=== PATIENT | female | born 1985 | race Caucasian/White ===

== ENCOUNTER → 2017-04-30 10:15 | Emergency (ER) | payer OTHER ==
[~2017-04-30 10:15] MED LIST: Famotidine IV* 10 MG/ML 2 ML (20 mg) IV SLOW PU ONE; LORazepam INJ* 2 MG/ML 1 ML VIAL IV PUSH PRN; diPHENhydraMINE IV* 50 MG/ML 1 ml VIAL (BENADRYL) IV ONE
[2017-04-30 11:51] LABS: Hematocrit 40 % (35-47); Hemoglobin 13.3 g/dl (12.0-16.0); Mean Corpuscular HGB Conc 33 g/dl (31-36); Mean Corpuscular Hemoglobin 29 pg (27-31); Mean Corpuscular Volume 86 fL (80-97); Mean Platelet Volume 7 um3 (7.4-10.4); Red Blood Count 4.66 10^6/ul (4.0-5.4); Red Cell Distribution Width 15 % (10.5-15)
[2017-04-30 11:59] LABS: Urine Bacteria Absent (Absent); Urine Bilirubin Negative (Negative); Urine Glucose Negative (Negative); Urine Nitrite Positive (Negative)
[2017-04-30 12:05] LABS: Albumin 4.2 g/dL (3.2-5.2); BUN/Creatinine Ratio 23.1 (8-20); C Reactive Protein 4.37 mg/L (< 5.00); Calcium 9.7 mg/dL (8.6-10.3); EGFR African American 110.1 (>60); EGFR Non-African American 85.6 (>60); Globulin 3.4 g/dL (2-4); Potassium 3.5 mmol/L (3.5-5.0); Total Bilirubin 0.4 mg/dL (0.2-1.0); Total Protein 7.6 g/dL (6.4-8.9)
[2017-04-30 15:36] VITALS: BP 126/89
--- NOTE | 2017-04-30 15:56 | CONSULT ---
Consult Consult: CC: vaginal itching HPI: Pt says her itching first started on Sat pretty soon after having intercourse. She also had some chunky white discharge so she used OTC yeast treatment x2. She says the itching and irritation continued to get worse. She saw her PCP on thursday, had affirm done which did end up coming back + for yeast and was given diflucan 150mg. She still felt no improvement and tried vagisil and nystatin cream which made her skin burn. She was seen at [facility] on yesterday (thu) and was started on a medrol dose pack for suspected contact dermatitis and also had lidocaine gel applied. She says the lidocaine initially burned a lot but then maybe helped some for a little while. She also says hot water joseph. She has been trying to keep it dry and sits in front of a fan sometimes to dry it out and has used some ice. She also tried desitin once. Yesterday she was also prescribed a second course of diflucan and took 200mg yesterday and 100mg today and has 3 more doses. She says this morning she put monistat cream on it because that hasn't seemed to be bothering her as much but after a little bit she started to feel like her skin was burning and had an irresistible urge to itch the area so she hopped in the shower to wash it off and the water burned even more and made her feel so bad that she came to the ED. She is also very anxious about it and says she has been unable to sleep , the itching is worse at night. She takes Ibuprofen nightly and zoloft and last night she took cyclobenzaprine twice but still had difficulty sleeping. Meds: zoloft, plus the more recent ones mentioned in the HPI Allergies: NKDA PMH: anxiety PSH: wisdom teeth, CS, D&C Soc Hx: denies alcohol, tobacco or illicit drug use. AVSS PE Gen: NAD pelvic: erythema over labia majora and clitoral area extending around the introitus and perineum - tender to touch. Nontender intravaginally - speculum exam deferred since she was just seen in our office yesterday. Assessment: Yeast infection with development of contact dermatitis either from itching or from some of the creams used to treat the itching. ?persistent yeast infection. Significant anxiety component. Plan: Recheck affirm to see if yeast has resolved. Continue steroid taper and fluconazole for now. Stop other yeast creams. Keep area very dry, use squirt bottle instead of toilet paper. Apply desitin to dry skin as barrier ointment. Apply ice whenever possible. Take xanax as prescribed. Talk with PCP about other options to help with sleep.
--- NOTE | 2017-05-01 19:28 | ED ---
Joaquín Laguna Alfonso, scribed for Seng Marc MD on 04/30/17 at 1102 . GI/ HPI - HPI Summary HPI Summary: This patient is a 32 year old F presenting to [facility] accompanied by mother and sister with a chief complaint of vaginal symptoms since this morning. Patient reports It feels like paper cuts and might be an allergic reaction to medications she was recently prescribed to treat a yeast infection. The CC is described as pruritic rash radiating from vagina to her buttock. Pt rates the pain 6/10 in severity. Symptoms aggravated by walking and alleviated by ice. She reports insomnia. Patient has been taking Benadryl every 4-6 hours since 5 days ago. She was taking Miconazole and Vagisil 5, 4 and 3 days ago. She was took Fluconazole, nystatin cream, Ativan, and Xanax 2 days ago. She used Fluconazole, Lidocaine gel, and Prednisone 24 mg yesterday. Today she used Fluconazole, Prednisone 4mg, Pyridium, and Xanax. PMHx of depression. - History of Current Complaint Chief Complaint: EDAllergicReaction Time Seen by Provider: 04/30/17 10:35 Stated Complaint: POSSIBLE ALLERGIC REACTION Hx Obtained From: Patient, Family/Manufacturing Project Manager - Mother Onset/Duration: Started Hours Ago - This morning, Still Present Timing: Constant Severity: Moderate Current Severity: Moderate Pain Intensity: 6 - /10 Additional Location for Females: Vulva - pruritic rash radiating from vagina to her buttock Pain Characteristics: Itching Associated Signs and Symptoms: Positive: Other: - Insomnia Aggravating Factor(s): Walking/Exertion Alleviating Factor(s): Ice - Allergy/Home Medications Allergies/Adverse Reactions: Allergies Allergy/AdvReac Type Severity Reaction Status Date / Time No Known Allergies Allergy Verified 06/20/16 08:53 PMH/Surg Hx/FS Hx/Imm Hx Endocrine/Hematology History: Denies: Hx Diabetes Cardiovascular History: Denies: Hx Congestive Heart Failure, Hx Hypertension, Hx Pacemaker/ICD GI History: Reports: Other GI Disorders - internal hemmorhoids History: Reports: Other Problems/Disorders - kidney stones Denies: Hx Renal Disease Sensory History: Denies: Hx Hearing Aid Psychiatric History: Reports: Hx Anxiety, Hx Depression - zoloft Denies: Hx Panic Disorder - Surgical History Surgery Procedure, Year, and Place: C SECTION 10/23. D & C [place] - 2006 - Immunization History Date of Tetanus Vaccine: 2009 Date of Influenza Vaccine: 2012 Infectious Disease History: No Infectious Disease History: Denies: Traveled Outside the [place] in Last 30 Days - Family History Known Family History: Positive: Cardiac Disease, Hypertension, Diabetes, Other - Cancer - Social History Alcohol Use: None Substance Use Type: Reports: None Smoking Status (MU): Never Smoked Tobacco Have You Smoked in the Last Year: No Review of Systems Negative: Fever Genitourinary: Other - Recent yeast infection Positive: Rash - pruritic rash radiating from vagina to her buttock Neurological: Other - Positive insomia All Other Systems Reviewed And Are Negative: Yes Physical Exam - Summary Physical Exam Summary: VITAL SIGNS: Reviewed. GENERAL: Patient is a well-developed and nourished female who is lying comfortable in the stretcher. Patient is not in any acute respiratory distress. HEAD AND FACE: Normocephalic and atraumatic. EYES: PERRLA, EOMI x 2, No injected conjunctiva. EARS: Hearing grossly intact. Ear canals and tympanic membranes are WNL. MOUTH: Oropharynx within normal limits. NECK: Supple, trachea is midline, no adenopathy, no JVD. CHEST: Symmetric, no tenderness at palpation LUNGS: Clear to auscultation bilaterally. No wheezing or crackles. CVS: RRR, S1 and S2 present, no murmurs or gallops appreciated. ABDOMEN: Soft, non-tender. No signs of distention. Positive bowel sounds. No rebound no guarding, and no masses palpated. No abdominal bruit or pulsations. EXTREMITIES: FROM in all major joints, no edema, no cyanosis or clubbing. NEURO: Alert and oriented x 3. No acute neurological deficits. Speech is normal. SKIN: Dry and warm INFANTRY WEAPONS OFFICER: Female cardiac rehab nurse (GISSELLE Wheeler) is present during the examination. External genitalia: within positive erythema in the labia majora and minora and vulva. No discharge was noticed. No vesicular lesions noted. Declined an speculum internal exam. Triage Information Reviewed: Yes Vital Signs On Initial Exam: Initial Vitals Temp Pulse Resp BP Pulse Ox 99.7 F 138 26 136/65 97 04/30/17 10:04/30/17 10:04/30/17 10:04/30/17 10:04/30/17 10:17 Vital Signs Reviewed: Yes Diagnostics - Vital Signs Vital Signs Temp Pulse Resp BP Pulse Ox 04/30/17 10:19 99.3 F 135 26 136/65 97 04/30/17 10:17 99.7 F 138 26 136/65 97 - Laboratory Result Diagrams: 04/30/17 11:38 04/30/17 11:38 Lab Statement: Any lab studies that have been ordered have been reviewed, and results considered in the medical decision making process. GIGU Course/Dx - Course Course Of Treatment: This patient is a 32 year old F presenting to [facility] accompanied by mother and sister with a chief complaint of vaginal symptoms since this morning. Patient reports It feels like paper cuts and might be an allergic reaction to medications she was recently prescribed to treat a yeast infection. The CC is described as pruritic rash radiating from vagina to her buttock. Pt rates the pain 6/10 in severity. Symptoms aggravated by walking and alleviated by ice. She reports insomnia. Patient has been taking Benadryl every 4-6 hours since 5 days ago. She was taking Miconazole and Vagisil 5, 4 and 3 days ago. She was took Fluconazole, nystatin cream, Ativan, and Xanax 2 days ago. She used Fluconazole, Lidocaine gel, and Prednisone 24 mg yesterday. Today she used Fluconazole, Prednisone 4mg, Pyridium, and Xanax. PMHx of depression. Assessment/Plan: Test results without any signification abnormalities expect for WBC of 11, sodium of 132, glucose 149, and a slightly increased LFTs. Urinalysis positive for UTI. I believe that her symptoms are secondary to a contact dermatitis. Since patient has been using multiple medications I cannot determine which she is allergic to. I discussed the case with Dr. Grove ( OBGYN) who came to the ED and accessed the patient. She recommended the patient be discharge with anxiety medication and continues the current medications and see if the patients symptoms improved. I also add ciprofloxacin since the patient has a UTI. As this point, the patient is feeling better. She was given Ativan and Benadryl and her symptoms have improved. Patient is hemodynamically stable and A&Ox3. I discussed all the findings and test results with the patient. Patient was instructed to return to the emergency room immediately if any of the symptoms return or worsens. Plan of care was discussed with the patient and understands and agrees. All questions were answered at patient satisfaction. There were no further complaints or concerns. Lung exam before discharge: CTA B/L. Good air exchange. No wheezing or crackles heard. CVS: S1 and S2 present. No murmurs appreciated. Patient is alert and oriented x 3. Patient is hemodynamically stable. Patient will be discharged home with follow up PCP in the next 2-3 days - Diagnoses Provider Diagnoses: Contact dermatitis, UTI (urinary tract infection) - Physician Notifications Discussed Care Of Patient With: Parul Grove Time Discussed With Above Provider: 10:57 Instructed by Provider To: Other - Consulted Dr. Grove (OBGYN) who states she will see patient in the ED. Discharge - Discharge Plan Condition: Stable Disposition: HOME Prescriptions: ALPRAZolam TAB* [Xanax TAB*] 0.5 mg PO TID PRN #12 tab MDD 3 tabs PRN Reason: Anxiety Ciprofloxacin TAB* [Cipro 250 MG Tab*] 250 mg PO BID #6 tab HYDROcodone/ACETAMIN 5-325 MG* [[place] 5-325 TAB*] 1 tab PO Q6H PRN #12 tab MDD 4 tabs PRN Reason: Pain Patient Education Materials: Urinary Tract Infection in Women (ED), Contact Dermatitis (ED), Anxiety (ED) Forms: *Work Release Referrals: Allyn Juarez NP [Primary Care Provider] - The documentation as recorded by the Joaquín alexander Alfonso accurately reflects the service I personally performed and the decisions made by , Seng Marc MD.
== END | disposition home or self-care (01) ==
LOC: ED 10:15
DX: L25.9 Unspecified contact dermatitis, unspecified cause (principal); B37.3 Candidiasis of vulva and vagina; N39.0 Urinary tract infection, site not specified; F41.9 Anxiety disorder, unspecified; F32.9 Major depressive disorder, single episode, unspecified; G47.00 Insomnia, unspecified
CPT/HCPCS: 36415; 80053; 81003; 81015; 85025; 86140; 87086; 87480; 87510; 87660; 96374; 96375; 99283; J1200; J2060

== ENCOUNTER → 2017-06-10 08:57 | Emergency (ER) | payer OTHER ==
[~2017-06-10 08:57] MED LIST changes: -Famotidine IV* 10 MG/ML 2 ML (20 mg) IV SLOW PU ONE; +Iohexol 300* (CONTRAST) 10 ML SDV IV ONE; +Ketorolac INJ* 30 MG/ML 1 ML VIAL IV ONE; -LORazepam INJ* 2 MG/ML 1 ML VIAL IV PUSH PRN; +Morphine INJ* 4 MG/ML 1 ML SYRINGE IV ONE; +NS 0.9% 1000 ML* 1,000 ML IV ONE; +Ondansetron INJ* 2 MG/ML VIAL IV ONE; -diPHENhydraMINE IV* 50 MG/ML 1 ml VIAL (BENADRYL) IV ONE
[2017-06-10 09:46] LABS: Hematocrit 36 % (35-47); Hemoglobin 12.2 g/dl (12.0-16.0); Mean Corpuscular HGB Conc 34 g/dl (31-36); Mean Corpuscular Hemoglobin 29 pg (27-31); Mean Corpuscular Volume 85 fL (80-97); Mean Platelet Volume 7 um3 (7.4-10.4); Red Cell Distribution Width 14 % (10.5-15); White Blood Count 6.5 10^3/ul (3.5-10.8)
[2017-06-10 09:59] LABS: ALT 13 U/L (7-52); AST 13 U/L (13-39); Albumin 3.8 g/dL (3.2-5.2); Alkaline Phosphatase 46 U/L (34-104); Anion Gap 5 mmol/L (2-11); BUN/Creatinine Ratio 15.6 (8-20); Blood Urea Nitrogen 12 mg/dL (6-24); C Reactive Protein 5.56 mg/L (< 5.00); CO2 Carbon Dioxide 21 mmol/L (22-32); Calcium 8.9 mg/dL (8.6-10.3); Chloride 109 mmol/L (101-111); EGFR African American 111.7 (>60); EGFR Non-African American 86.9 (>60); Glucose 87 mg/dL (70-100); Lipase 35 U/L (11.0-82.0); Potassium 3.8 mmol/L (3.5-5.0); Sodium 135 mmol/L (133-145); Total Protein 6.8 g/dL (6.4-8.9)
--- NOTE | 2017-06-10 10:23 | RAD ---
Indication: RIGHT lower quadrant pain. Question ovarian torsion or ovarian cyst rupture. Comparison: June 30, 2016 ultrasound. Technique: Transabdominal pelvic ultrasound. Report: Incomplete bladder distention limits acoustic window resulting in suboptimal image quality particularly of the uterus. 4.8 x 3.7 x 4.8 cm retroverted uterus is without gross abnormality. 3.2 mm endometrium. No free fluid evident. 3.1 x 2.0 x 1.9 cm RIGHT ovary with documented vascular flow is remarkable for a partially decompressed appearing 1.9 x 1.1 x 1.3 cm cyst with some inward directed margins with low-level echoes/reticulated echotexture pattern devoid of intrinsic vascularity most consistent with a partially decompressed hemorrhagic cyst. 2.9 x 1.5 x 2.1 cm LEFT ovary with documented vascular flow is unremarkable. No visualized extra ovarian adnexal region lesions evident. IMPRESSION: Low suspicion 1.9 cm maximum dimension partially decompressed hemorrhagic cyst of the RIGHT ovary. Normal vascular flow documented at both ovaries.
--- NOTE | 2017-06-10 13:06 | RAD ---
CLINICAL HISTORY: Right lower quadrant pain COMPARISON: October 31, 2013 TECHNIQUE: Multiple contiguous axial CT scans were obtained of the abdomen and pelvis after the administration of intravenous contrast. Coronal and sagittal multiplanar reformations are submitted for review. Oral contrast was administered. Delayed images were obtained through the abdomen and pelvis. FINDINGS: LUNG BASES: The lung bases are clear. LIVER: The liver is normal in shape, size, contour, and attenuation. BILE DUCTS: There is no intrahepatic or extrahepatic biliary dilatation. GALLBLADDER: The gallbladder is normal, without pericholecystic inflammatory change. PANCREAS: The pancreas is normal, without mass or ductal dilatation. SPLEEN: Normal in size and appearance. UPPER GI TRACT: Evaluation of the gastrointestinal tract is limited by incomplete gastric distention. The upper GI tract is unremarkable. SMALL BOWEL AND MESENTERY: The small bowel is normal in contour, course, and caliber. There is no obstruction or dilatation. COLON: The colon is normal in contour, course, caliber. There is no pericolonic inflammatory change. There is a tubular, vermiform, hollow viscus that is blind ending, and originates from the cecum, consistent with a normal appendix. There is no periappendiceal inflammatory change. This is best seen on coronal images 38 through 43 ADRENALS: Normal bilaterally. KIDNEYS: The kidneys are normal in shape, size, contour, and axis. There is no hydronephrosis or nephrolithiasis. BLADDER: The bladder is smooth in contour. PELVIC ORGANS: The uterus and adnexa are grossly normal for technique. AORTA: The aorta is normal. IVC: Unremarkable LYMPH NODES: There is no lymphadenopathy by size criteria. ABDOMINAL WALL: There is no evidence for abdominal wall hernia. BONES AND SOFT TISSUES: Unremarkable OTHER: None IMPRESSION: NORMAL APPENDIX. NO ACUTE CT PATHOLOGY OF THE VISUALIZED ABDOMEN OR PELVIS
[2017-06-10 14:01] VITALS: BP 91/60
--- NOTE | 2017-06-10 18:18 | ED ---
Blayne Laguna Angela, scribed for Terrell Wagner MD on 06/10/17 at 0915 . Abdominal Pain/Female - HPI Summary HPI Summary: This pt is a 32 y/o female presenting to [facility] c/o gradual onset of RLQ abd pain that radiates to her low right back since last night. Pt reports associate sx of nausea and rhinorrhea (only from right nostril). Pt states she took Tylenol last night with no relief and ibuprofen at 2:00 AM with no relief, and was up all night. Her pain is alleviated when laying down and at rest, and aggravated and with movement. Pt denies fever, chills, diarrhea, vomiting, urinary frequency, urinary urgency, vaginal bleeding, vaginal discharge, dysuria , hematuria, rash. She notes she getting over a yeast infection/contact dermatitis, due to probably allergies to latex. Pt has started control 1.5 weeks ago. Pt states both her kids have strep throat. She reports PMHx: ovarian cyst, kidney stones. - History of Current Complaint Chief Complaint: EDAbdPain Stated Complaint: LOWER RT ABD PAIN Time Seen by Provider: 06/10/17 09:07 Hx Obtained From: Patient Onset/Duration: Gradual Onset Timing: Constant Pain Intensity: 5 Pain Scale Used: 0-10 Numeric Location: Discrete At: RUQ Radiates: Yes Radiates to: Back - right side Aggravating Factor(s): Movement Alleviating Factor(s): Other: - rest and laying down Associated Signs and Symptoms: Positive: Back Pain, Nausea. Negative: Fever, Cough, Chest Pain, Blood in Stool, Urinary Symptoms, Decreased Appetite, Vaginal Bleeding, Vaginal Discharge, Vomiting, Diarrhea Allergies/Adverse Reactions: Allergies Allergy/AdvReac Type Severity Reaction Status Date / Time No Known Allergies Allergy Verified 06/20/16 08:53 PMH/Surg Hx/FS Hx/Imm Hx Endocrine/Hematology History: Denies: Hx Diabetes Cardiovascular History: Denies: Hx Congestive Heart Failure, Hx Hypertension, Hx Pacemaker/ICD GI History: Reports: Other GI Disorders - internal hemmorhoids History: Reports: Hx Kidney Stones, Other Problems/Disorders - kidney stones, ovarian cyst. Denies: Hx Renal Disease Sensory History: Denies: Hx Hearing Aid Psychiatric History: Reports: Hx Anxiety, Hx Depression - zoloft Denies: Hx Panic Disorder - Surgical History Surgery Procedure, Year, and Place: C SECTION 10/23. D & C 2010. [place] - 2006 - Immunization History Date of Tetanus Vaccine: 2009 Date of Influenza Vaccine: 2012 Infectious Disease History: Denies: Traveled Outside the [place] in Last 30 Days - Family History Known Family History: Positive: Cardiac Disease, Hypertension, Diabetes, Other - Cancer - Social History Alcohol Use: None Substance Use Type: Reports: None Smoking Status (MU): Never Smoked Tobacco Have You Smoked in the Last Year: No Review of Systems Negative: Fever, Chills Eyes: Negative Negative: Sore Throat, Nasal Discharge Negative: Chest Pain Negative: Shortness Of Breath Positive: Abdominal Pain, Nausea. Negative: Vomiting, Diarrhea Negative: burning, dysuria, discharge, flank pain, hematuria Positive: Other - right sided back pain Skin: Negative Negative: Headache, Numbness Psychological: Normal All Other Systems Reviewed And Are Negative: Yes Physical Exam - Summary Physical Exam Summary: The patient is well-nourished in no acute distress and in no acute pain. The skin is warm and dry and skin color reflects adequate perfusion. HEENT: The head is normocephalic and atraumatic. The pupils are equal and reactive. The conjunctivae are clear and without drainage. Nares are patent and without drainage. Mouth reveals moist mucous membranes and the throat is without erythema and exudate. Neck is supple with full range of motion and non-tender. Respiratory: Chest is non-tender. Lungs are clear to auscultation and breath sounds are symmetrical and equal. Cardiovascular: Hear is regular rate and rhythm. Abdomen: The abdomen is soft. There is tenderness over [place]Burney's Point. There is no tenderness over the ovaries. There are normal bowel sounds heard in all four quadrants and there is no organomegaly palpated. Musculoskeletal: There is no back pain noted. Extremities are non-tender with full range of motion. There is good capillary refill. There is no peripheral edema or calf tenderness elicited. There is no CVA tenderness. There is pain with flexion of the right leg. Neurological: Patient is alert and oriented to person, place and time. The patient has symmetrical motor strength in all four extremities. Psychiatric: The patient has an appropriate affect and does not exhibit any anxiety or depression. Triage Information Reviewed: Yes Vital Signs On Initial Exam: Initial Vitals Temp Pulse Resp BP Pulse Ox 97.7 F 79 16 105/58 100 06/10/17 09:00 06/10/17 09:00 06/10/17 09:00 06/10/17 09:00 06/10/17 09:00 Vital Signs Reviewed: Yes Diagnostics - Vital Signs Vital Signs Temp Pulse Resp BP Pulse Ox 06/10/17 09:00 97.7 F 79 16 105/58 100 - Laboratory Lab Results: Lab Results 06/10/17 06/10/17 06/10/17 Range/Units 09:30 09:30 09:30 WBC 6.5 (3.5-10.8) 10^3/ul RBC 4.20 (4.0-5.4) 10^6/ul Hgb 12.2 (12.0-16.0) g/dl Hct 36 (35-47) % MCV 85 (80-97) fL MCH 29 (27-31) pg MCHC 34 (31-36) g/dl RDW 14 (10.5-15) % Plt Count 262 (150-450) 10^3/ul MPV 7 L (7.4-10.4) um3 Neut % (Auto) 69.2 (38-83) % Lymph % (Auto) 23.6 L (25-47) % Kimble % (Auto) 5.7 (1-9) % Eos % (Auto) 0.5 (0-6) % Baso % (Auto) 1.0 (0-2) % Absolute Neuts (auto) 4.5 (1.5-7.7) 10^3/ul Absolute Lymphs (auto) 1.5 (1.0-4.8) 10^3/ul Absolute Monos (auto) 0.4 (0-0.8) 10^3/ul Absolute Eos (auto) 0 (0-0.6) 10^3/ul Absolute Basos (auto) 0.1 (0-0.2) 10^3/ul Absolute Nucleated RBC 0 10^3/ul Nucleated RBC % 0.1 Sodium 135 (133-145) mmol/L Potassium 3.8 (3.5-5.0) mmol/L Chloride 109 (101-111) mmol/L Carbon Dioxide 21 L (22-32) mmol/L Anion Gap 5 (2-11) mmol/L BUN 12 (6-24) mg/dL Creatinine 0.77 (0.51-0.95) mg/dL Est GFR ( Amer) 111.7 (>60) Est GFR (Non-Af Amer) 86.9 (>60) BUN/Creatinine Ratio 15.6 (8-20) Glucose 87 (70-100) mg/dL Lactic Acid 0.7 (0.5-2.0) mmol/L Calcium 8.9 (8.6-10.3) mg/dL Total Bilirubin 0.60 (0.2-1.0) mg/dL AST 13 (13-39) U/L ALT 13 (7-52) U/L Alkaline Phosphatase 46 (34-104) U/L C-Reactive Protein 5.56 H (< 5.00) mg/L Total Protein 6.8 (6.4-8.9) g/dL Albumin 3.8 (3.2-5.2) g/dL Globulin 3.0 (2-4) g/dL Albumin/Globulin Ratio 1.3 (1-3) Lipase 35 (11.0-82.0) U/L Beta HCG, Quant < 0.60 mIU/mL Result Diagrams: 06/10/17 09:30 06/10/17 09:30 Lab Statement: Any lab studies that have been ordered have been reviewed, and results considered in the medical decision making process. - CT Abdomen/pelvis CT CT Interpretation: No Acute Changes - IMPRESSION: Normal appendix. No acute CT pathology of the visualized abdomen or pelvis. ED physician has reviewed this radiology report and agrees. CT Interpretation Completed By: Radiologist - Ultrasound No standard instances Ultrasound Interpretation: Positive (See Comments) - Pelvis US IMPRESSION: Low suspicion 1.9 cm maximum dimension partially decompressed hemorrhagic cyst of the right ovary. Normal vascular flow documented at both ovaries. ED physician has reviewed this radiology report and agrees. Ultrasound Interpretation Completed By: Radiologist Re-Evaluation - Re-Evaluation First Eval Re-Evaluation Time: 10:54 Comment: I reviewed the US and blood work results with the pt. The pt had minimal pain during the CT. We are awaiting the CT results. Third Eval Re-Evaluation Time: 13:41 Comment: I discussed with the pt her CT results. Pt will be discharged. Abdominal Pain Fem Course/Dx - Course Course Of Treatment: This pt is a 32 y/o female presenting to [facility] c/o gradual onset of RLQ abd pain that radiates to her low right back since last night. Pt reports associate sx of nausea. PMHx: ovarian cysts and kidney stones. In the ED course, the pt was given IV fluids, Toradol, and Zofran. The US revealed an incidental ovarian cyst. CT abd/pel shows normal appendix. No acute CT pathology of the visualized abdomen or pelvis. ED physician has reviewed this radiology report and agrees. Pt will be discharged with Tramadol. - Diagnoses Differential Diagnosis: Positive: Appendicitis, Ectopic , Ovarian Cyst , , Renal Colic, Other - ovarian torsion, ruptured ovarian cyst Provider Diagnoses: Abdominal pain, Ovarian cyst Discharge - Discharge Plan Condition: Stable Disposition: HOME Prescriptions: traMADol TAB* [Ultram*] 50 mg PO Q6HR PRN #20 tab MDD 4 PRN Reason: pain Patient Education Materials: Abdominal Pain (ED), Ovarian Cyst (ED) Referrals: Allyn Juarez LEATHER CASE FINISHER [Primary Care Provider] - Additional Instructions: Please follow up with your primary care provider to assure your symptoms are improving. The documentation as recorded by the Blayne alexander Angela accurately reflects the service I personally performed and the decisions made by , Terrell Wagner MD.
== END | disposition home or self-care (01) ==
LOC: ED 08:57
DX: N83.209 Unspecified ovarian cyst, unspecified side (principal); R10.31 Right lower quadrant pain
CPT/HCPCS: 36415; 74177; 76856; 80053; 83605; 83690; 84702; 85025; 86140; 96374; 96375; 96376; 99282; J1885; J2270; J2405; Q9967

== ENCOUNTER 2017-06-11 09:40 | Emergency (ER) | payer OTHER ==
[2017-06-11] MEDS ORDERED: Metoclopramide IV* 5 MG/ML 2 ML VIAL IV SLOW PU ONE (10:53)
[2017-06-11 11:15] LABS: Hematocrit 34 % (35-47); Hemoglobin 11.7 g/dl (12.0-16.0); Mean Corpuscular HGB Conc 34 g/dl (31-36); Mean Corpuscular Hemoglobin 29 pg (27-31); Mean Corpuscular Volume 85 fL (80-97); Mean Platelet Volume 7 um3 (7.4-10.4); Red Blood Count 4.02 10^6/ul (4.0-5.4); Red Cell Distribution Width 14 % (10.5-15); White Blood Count 4.5 10^3/ul (3.5-10.8)
--- NOTE | 2017-06-11 11:17 | RAD ---
HISTORY: Left facial numbness, expressive aphasia, headache COMPARISONS: None TECHNIQUE: Multiple contiguous axial CT scans were obtained of the head without intravenous contrast. FINDINGS: HEMORRHAGE/INFARCT: There is no hemorrhage or acute infarct. MASSES/SHIFT: There is no mass or shift. EXTRA-AXIAL SPACES: There are no extra-axial fluid collections. SULCI AND VENTRICLES: The sulci and ventricles are normal in size and position for the patient's stated age. CEREBRUM: There are no focal parenchymal abnormalities. BRAINSTEM: There are no focal parenchymal abnormalities. CEREBELLUM: There are no focal parenchymal abnormalities. VESSELS: The vessels are grossly normal. PARANASAL SINUSES: The paranasal sinuses are clear. ORBITS: The orbits are unremarkable. BONES AND SOFT TISSUE: No bone or soft tissue abnormalities are noted. OTHER: None IMPRESSION: NO ACUTE INTRACRANIAL PATHOLOGY.
[2017-06-11] MEDS ORDERED: Ketorolac INJ* 30 MG/ML 1 ML VIAL IV PUSH ONE (11:22)
[2017-06-11] MEDS ORDERED: Magnesium Sulfate 2 GM IV* 2 GM/50 ML BAG IVPB ONE (11:22)
[2017-06-11 11:25] LABS: Albumin 3.5 g/dL (3.2-5.2); BUN/Creatinine Ratio 10.8 (8-20); Calcium 8.4 mg/dL (8.6-10.3); EGFR African American 102.5 (>60); EGFR Non-African American 79.7 (>60); Globulin 2.7 g/dL (2-4); Potassium 3.3 mmol/L (3.5-5.0); Total Bilirubin 0.4 mg/dL (0.2-1.0); Total Protein 6.2 g/dL (6.4-8.9)
[2017-06-11] MEDS ORDERED: Dexamethasone IV* 4 MG/ML 1 ML (4 MG) IV SLOW PU ONE (12:07)
[2017-06-11] MEDS ORDERED: diPHENhydraMINE IV* 50 MG/ML 1 ml VIAL (BENADRYL) ONE (12:23)
[2017-06-11] MEDS ORDERED: diPHENhydraMINE IV* 50 MG/ML 1 ml VIAL (BENADRYL) IM ONE (12:30)
[2017-06-11] MEDS ORDERED: diPHENhydraMINE IV* 50 MG in NS 0.9% 50 ML* 50 ML IVPB ONE (12:32)
[2017-06-11 12:35] VITALS: BP 122/79
--- NOTE | 2017-06-13 21:27 | ED ---
Edson Laguna Benjamin, scribed for Gurinder Xie MD on 06/11/17 at 1059 . Neurological HPI - HPI Summary HPI Summary: 32yo female who reports having sudden onset of bilateral arm numbness and migraine like DUMONT today at 0830 [address]. Pt also had some blurred vision and trouble finding her words and difficulty recalling names of her close friend when trying to call them. Speech problems lasted about an hour or 1.5 hours. Pt has hx of migraine but never with speech problems. Pt takes imitrex for her migraines. - History of Current Complaint Chief Complaint: EDNeurologicalDeficit Stated Complaint: ARMS NUMB Time Seen by Provider: 06/11/17 10:43 Hx Obtained From: Patient Onset/Duration: Sudden Onset - 08 Timing: Sudden Onset Onset Severity: Moderate Current Severity: Mild Headache Location: Diffuse (Right) Pain Intensity: 5 Pain Scale Used: 0-10 Numeric Character: Numbness/Tingling, Impaired Speech, Typical Migraine - Allergy/Home Medications Allergies/Adverse Reactions: Allergies Allergy/AdvReac Type Severity Reaction Status Date / Time No Known Allergies Allergy Verified 06/11/17 10:28 PMH/Surg Hx/FS Hx/Imm Hx Endocrine/Hematology History: Denies: Hx Diabetes Cardiovascular History: Denies: Hx Congestive Heart Failure, Hx Hypertension, Hx Pacemaker/ICD GI History: Reports: Other GI Disorders - internal hemmorhoids History: Reports: Hx Kidney Stones, Other Problems/Disorders - kidney stones, ovarian cyst. Denies: Hx Renal Disease Sensory History: Denies: Hx Hearing Aid Neurological History: Reports: Hx Migraine Psychiatric History: Reports: Hx Anxiety, Hx Depression - zoloft Denies: Hx Panic Disorder - Surgical History Surgery Procedure, Year, and Place: C SECTION 10/23. D & C 2010. WISDOM - 2006 - Immunization History Date of Tetanus Vaccine: 2009 Date of Influenza Vaccine: 2012 Infectious Disease History: Denies: Traveled Outside the [place] in Last 30 Days - Family History Known Family History: Positive: Cardiac Disease, Hypertension, Diabetes, Other - Cancer - Social History Occupation: Employed Full-time Lives: With Family Alcohol Use: None Substance Use Type: Reports: None Smoking Status (MU): Never Smoked Tobacco Have You Smoked in the Last Year: No Review of Systems Constitutional: Negative Positive: Blurred Vision ENT: Negative Cardiovascular: Negative Respiratory: Negative Gastrointestinal: Negative Genitourinary: Negative Musculoskeletal: Negative Skin: Negative Positive: Headache, Numbness, Slurred Speech Psychological: Normal All Other Systems Reviewed And Are Negative: Yes Physical Exam Triage Information Reviewed: Yes Vital Signs On Initial Exam: Initial Vitals Temp Pulse Resp BP Pulse Ox 98.7 F 75 16 108/56 100 06/11/17 10:09 06/11/17 10:09 06/11/17 10:09 06/11/17 10:09 06/11/17 10:09 Vital Signs Reviewed: Yes Appearance: Positive: Well-Appearing, Well-Nourished, Pain Distress - mild Skin: Positive: Warm, Dry Head/Face: Positive: Normal Head/Face Inspection. Negative: TMJ Tenderness Eyes: Positive: EOMI, KATHERYN ENT: Positive: Normal ENT inspection, Hearing grossly normal Neck: Positive: Supple, Nontender. Negative: No Lymphadenopathy Respiratory/Lung Sounds: Positive: Clear to Auscultation, Breath Sounds Present. Negative: Rales, Rhonchi, Wheezes Cardiovascular: Positive: RRR, Pulses are Symmetrical in both Upper and Lower Extremities. Negative: Murmur, Leg Edema Left, Leg Edema Right Abdomen Description: Positive: Nontender, Soft Bowel Sounds: Negative: Present Musculoskeletal: Positive: Strength/ROM Intact. Negative: Edema Left, Edema Right Neurological: Positive: Alert, Oriented to Person Place, Time. Negative: Sensory/Motor Intact - Diminished sensation on left hand and foot. Psychiatric: Positive: Affect/Mood Appropriate Diagnostics - Vital Signs Vital Signs Temp Pulse Resp BP Pulse Ox 06/11/17 10:09 98.7 F 75 16 108/56 100 - Laboratory Result Diagrams: 06/11/17 10:59 06/11/17 10:59 Lab Statement: Any lab studies that have been ordered have been reviewed, and results considered in the medical decision making process. - CT CT Brain CT Interpretation: No Acute Changes CT Interpretation Completed By: Radiologist - ED physician has reviewed this radiology report and agrees. - EKG 1111 Cardiac Rate: NL - 70bpm EKG Rhythm: Sinus Rhythm ST Segment: Normal Ectopy: None NIH Scale - NIH Scale Level of Consciousness: Alert/Keenly Responsive Ask Patient the Month and His/Her Age: Both Correct Ask Pt to Open/Close Eyes and Station Baggage Agent/Release Non-Paretic Hand: Both Correctly Best Gaze (Only Horizontal Eye Movement): Normal Visual Field Testing: No Visual Loss Facial Paresis-Pt to Smile & Close Eyes or Grimace Symmetry: Normal/Symmetrical Motor Function - Right Arm: No Drift-Holds 10 Seconds Motor Function - Left Arm: No Drift-Holds 10 Seconds Motor Function - Right Leg: No Drift-Holds 10 Seconds Motor Function - Left Leg: No Drift-Holds 10 Seconds Limb Ataxia-Must be out of Proportion to Weakness Present: Absent Sensory (Use Pinprick to Test Arms/Legs/Trunk/Face): Pinprick Less on Affected - Diminished sensation on left hand and foot. Best Language (Describe Picture, Name Items): No Aphasia Dysarthria (Read Several Words): Normal Extinction and Inattention: No Abnormality Total Score: 1 Re-Evaluation - Re-Evaluation First Eval Re-Evaluation Time: 12:29 Change: Improved Comment: Pt's DUMONT and numbness have improved. Pt is feeling better. Second Eval Re-Evaluation Time: 13:41 Change: Improved Comment: all symptoms are resolved. Course/Dx - Course Course Of Treatment: Reviewed pts medication and allergy lists. Blood pressure noted. Discussed with Dr. Ibrahim (Neurologist) at 1122. He agrees to have r/o any crebrovascular abnormalities and suggested to just treat out to DUMONT. - Diagnoses Provider Diagnoses: complex migraine Discharge - Discharge Plan Condition: Stable Disposition: HOME Patient Education Materials: Migraine Headache (ED) Referrals: Mo Ibrahim MD [Medical Doctor] - The documentation as recorded by the Edson alexander Benjamin accurately reflects the service I personally performed and the decisions made by , Gurinder Xie MD.
== END 2017-06-11 14:07 | disposition home or self-care (01) ==
LOC: ED 09:40
DX: G43.109 Migraine with aura, not intractable, without status migrainosus (principal); F41.8 Other specified anxiety disorders
CPT/HCPCS: 36415; 70450; 80053; 83605; 85025; 85610; 93005; 96372; 96374; 96375; 99283; J1100; J1200; J1885; J2765; J3475

== ENCOUNTER 2019-03-31 20:03 | Emergency (ER) | payer OTHER ==
[2019-03-31] MEDS ORDERED: Ketorolac INJ* 30 MG/ML 1 ML VIAL IV PUSH ONE (20:15)
[2019-03-31] MEDS ORDERED: NS 0.9% 1000 ML** 2,000 ML IV ONE (20:15)
[2019-03-31] MEDS ORDERED: Morphine 4 MG/ML VIAL (1 ml) 4 MG/ML VIAL IV ONE (20:15)
--- NOTE | 2019-03-31 20:26 | ED ---
Abdominal Pain/Female - HPI Summary HPI Summary: Pt is a 33 y/o F brought in by EMS to [facility] with a CC of abdominal pain that radiates into her back and mid-sternal chest pain [employer]. She reports that the pain started shortly after dinner, was abrupt, and has been constant since. She also reports feeling nauseous and diaphoretic. She states that she breaks out in hives when she gets anxious. She denies any headache, cough, sore throat, vomiting, diarrhea, and fatigue. She has no aggravating or alleviating symptoms. She reports being unable to get comfortable in the stretcher. - History of Current Complaint Stated Complaint: CHEST PAIN PER EMS Time Seen by Provider: 03/31/19 20:07 Hx Obtained From: Patient Onset/Duration: Sudden Onset, Still Present Timing: Constant Severity Initially: Severe Severity Currently: Severe Pain Intensity: 9 Pain Scale Used: 0-10 Numeric Location: Diffuse Radiates: Yes Radiates to: Back - upper bck, Chest - mid-sternal Character: Colicy Aggravating Factor(s): Nothing Alleviating Factor(s): Nothing Associated Signs and Symptoms: Positive: Negative - She denies any headache, cough, sore throat, vomiting, diarrhea, and fatigue., Diaphoresis, Back Pain - upper back, Nausea, Other: - mid-sternal CP, abdominal pain Allergies/Adverse Reactions: Allergies Allergy/AdvReac Type Severity Reaction Status Date / Time No Known Allergies Allergy Verified 06/11/17 10:28 Home Medications: Home Medications Amitriptyline TAB* [Elavil TAB*] 20 mg PO BEDTIME 03/31/19 [History Confirmed ] Cyclobenzaprine TAB* [Flexeril 10 MG TAB*] 10 mg PO PRN 03/31/19 [History] PMH/Surg Hx/FS Hx/Imm Hx Previously Healthy: No Endocrine/Hematology History: Denies: Hx Diabetes Cardiovascular History: Denies: Hx Congestive Heart Failure, Hx Hypertension, Hx Pacemaker/ICD GI History: Reports: Other GI Disorders - internal hemmorhoids History: Reports: Hx Kidney Stones, Other Problems/Disorders - kidney stones, ovarian cyst. Denies: Hx Renal Disease Sensory History: Denies: Hx Hearing Aid Neurological History: Reports: Hx Migraine Psychiatric History: Reports: Hx Anxiety, Hx Depression - zoloft Denies: Hx Panic Disorder - Surgical History Surgery Procedure, Year, and Place: C SECTION 10/23. D & C 2010. WISDOM - 2006 - Immunization History Date of Tetanus Vaccine: 2009 Date of Influenza Vaccine: 2012 - Family History Known Family History: Positive: Cardiac Disease, Hypertension, Diabetes, Other - Cancer - Social History Alcohol Use: None Hx Substance Use: No Substance Use Type: Reports: None Hx Tobacco Use: No Smoking Status (MU): Never Smoked Tobacco Have You Smoked in the Last Year: No Review of Systems Positive: Skin Diaphoresis. Negative: Fever, Fatigue Negative: Sore Throat Positive: Chest Pain - mid-sternal Negative: Shortness Of Breath, Cough Positive: Abdominal Pain, Nausea. Negative: Vomiting, Diarrhea Positive: Other - Upper back pain Negative: Headache All Other Systems Reviewed And Are Negative: Yes Physical Exam - Summary Physical Exam Summary: Appearance: colic Skin: Warm, dry, no obvious rash Eyes: sclera anicteric, no conjunctival pallor ENT: mucous membranes moist, pharynx appears normal Neck: Supple, nontender Respiratory: Clear to auscultation, no signs of respiratory distress Cardiovascular: Normal S1, S2. No murmurs. Normal distal pulses in tibial and radial bilaterally. Abdomen: Soft, RUQ tenderness, normal active bowel sounds present Musculoskeletal: Normal, Strength/ROM Intact Neurological: A&Ox3, awake and alert, mentation is normal, speech is fluent and appropriate Psychiatric: affect is normal, does not appear anxious or depressed Triage Information Reviewed: Yes Vital Signs On Initial Exam: 146/89 18breaths/min O2 stat 87 BPM 98.1 F 31.1 BMI 74.843 kg 1.55m Vital Signs Reviewed: Yes Diagnostics - Laboratory Result Diagrams: 03/31/19 20:22 03/31/19 20:22 Lab Statement: Any lab studies that have been ordered have been reviewed, and results considered in the medical decision making process. - EKG 2031 Cardiac Rate: NL - 93 BPM EKG Rhythm: Sinus Rhythm ST Segment: Normal Ectopy: None Summary of EKG Findings: NSR at 93 BPM, P waves, QRS complex, and T waves are within normal limits, T waves and intervals are normal, no ischemic changes. This is a normal EKG. interpreted by Dr. Hansen [place] 203103/31/19. Re-Evaluation - Re-Evaluation First Eval Re-Evaluation Time: 21:34 Change: Improved Comment: Pt reports feeling better after the morphine administration but still has pain. Abdominal Pain Fem Course/Dx - Course Course Of Treatment: Pt is a 33 y/o F brought in by EMS to [facility] with a CC of abdominal pain that radiates into her back and mid-sternal chest pain [employer]. She reports that the pain started shortly after dinner, was abrupt, and has been constant since. Her PE finds her to be colic and have RUQ tenderness. Her EKG showed a NSR at 93 BPM, P waves, QRS complex, and T waves are within normal limits, T waves and intervals are normal, no ischemic changes. This is a normal EKG. She received the following medications during her ED course: Toradol 10 mg , Morphine 4 mg. Pt will be a sing out from Dr. Cao to Dr. Lira at shift change 2200 pending ultrasound. She has a Dx of Biliary Colic. - Diagnoses Provider Diagnoses: Biliary colic, Cholelithiasis - Provider Notifications Discussed Care Of Patient With: Royal Castanon Time Discussed With Above Provider: 21:37 Instructed by Provider To: Other - Dr. Castanon, surgery, recommends discharging the pt. Discharge - Sign-Out/Discharge Documenting (check all that apply): Sign-Out Patient Signing out patient TO: Ramiro Lira Patient Received Moderate/Deep Sedation with Procedure: No - Discharge Plan Condition: Stable Disposition: HOME Prescriptions: Metoclopramide TAB* [Reglan TAB*] 10 mg PO Q6H PRN #14 tab PRN Reason: Nausea/Vomiting oxyCODONE/Acetamin 5/325 MG* [Percocet 5/325 TAB*] 1 tab PO Q6H PRN #14 tab MDD 4 PRN Reason: Pain Patient Education Materials: Biliary Colic (ED), Gallstones (ED) Referrals: Royal Castanon MD [Medical Doctor] - Allyn Juarez NP [Nurse Practitioner] - Additional Instructions: Call Dr. Castanon's office, surgeon, to make an appointment and follow up. RETURN TO THE ED IMMEDIATELY FOR WORSENING OR CONCERNING SYMPTOMS. - Billing Disposition and Condition Condition: STABLE Disposition: Home - Attestation Statements Document Initiated by Scribe: Yes Documenting Scribe: Sohail Cabrera Provider For Whom Scribe is Documenting (Include Credential): Donat Cao MD Scribe Attestation: Sohail Laguna, scribed for Donta Cao MD on 04/02/19 at 0518. Scribe Documentation Reviewed: Yes Provider Attestation: The documentation as recorded by the scribeSohail accurately reflects the service I personally performed and the decisions made by me, Donta Cao MD Status of Scribe Document: Viewed
[2019-03-31 20:31] LABS: ABS Basophils 0.1 10^3/ul (0-0.2); ABS Eosinophils 0.1 10^3/ul (0-0.6); ABS Lymphocytes 2.5 10^3/ul (1.0-4.8); ABS Monocytes 0.6 10^3/ul (0-0.8); ABS Neutrophils 3.4 10^3/ul (1.5-7.7); Eosinophil % 1.8 %; Hematocrit 38 % (35-47); Hemoglobin 12.9 g/dL (12.0-16.0); Lymphocyte % 36.9 %; Mean Corpuscular HGB Conc 34 g/dL (31-36); Mean Corpuscular Hemoglobin 29 pg (27-31); Mean Corpuscular Volume 85 fL (80-97); Mean Platelet Volume 7.1 fL (7.4-10.4); Nucleated Red Blood Cells % 0.1; Platelet Count 324 10^3/uL (150-450); Red Blood Count 4.42 10^6 /uL (3.70-4.87); Red Cell Distribution Width 14 % (10-15); White Blood Count 6.7 10^3/uL (3.5-10.8)
[2019-03-31 20:49] LABS: ALT 16 U/L (7-52); AST 16 U/L (13-39); Albumin 4.1 g/dL (3.2-5.2); Albumin/Globulin Ratio 1.4 (1-3); Alkaline Phosphatase 70 U/L (34-104); Anion Gap 8 mmol/L (2-11); BUN/Creatinine Ratio 17.6 (8-20); Blood Urea Nitrogen 16 mg/dL (6-24); CO2 Carbon Dioxide 23 mmol/L (22-32); Calcium 9.7 mg/dL (8.6-10.3); Chloride 107 mmol/L (101-111); EGFR African American 86.1 (>60); EGFR Non-African American 71.2 (>60); Glucose 58 mg/dL (70-100); Potassium 3.2 mmol/L (3.5-5.0); Sodium 138 mmol/L (135-145); Total Protein 7.1 g/dL (6.4-8.9)
[2019-03-31 20:55] LABS: HCG Pregnancy < 0.60 mIU/mL
--- OUTSIDE RECORDS SUMMARY | 2019-03-31 20:55 | XMS REPORT | Continuity of Care Document ---
:1985 External Reference #:[id number] Author Name Radha Erickson Care Team Providers Name Role Phone Lane Velarde M.D. Primary Care Physician Unavailable Payers Date Identification Numbers Payment Provider Subscriber Policy Number: [id number] [facility] Health Ins Ppo/Epo Quyen Espinalk PayID: [id number] [address] [place] [address] Onset: 2014 Policy Number: [id number] [facility] Insurance [facility] [employer]en [employer] Number: [id number] [address] [address] PayID: [id number] [address] Problems Active Problems Provider Date Migraine with typical aura Mo Ibrahim M.D. Onset: 06/17/2017 Family History Date Family Member(s) Observation Comments General heart,cancer General Hypertension Father Hypertension Mother Migraine Social History Type Date Description Comments Sex Unknown Lives With Occupation Currently Working ETOH Use Occasionally consumes alcohol Tobacco Use Start: Unknown Patient has never smoked Smoking Status Reviewed: 03/31/19 Patient has never smoked Exercise Type/Frequency Does not exercise Allergies, Adverse Reactions, Alerts Description No Known Drug Allergies Medications Active Medications SIG Qnty Indications Ordering Provider Date Amitriptyline HCL 3 every night 90tabs G43.109 Jass Cordero, 2017 10mg at bedtime M.D. Tablets Ondansetron HCL one by mouth 30tabs Allyn Doll, 10/21/2017 4mg every 8 hours M.D. Tablets as needed for nausea Lorazepam one by mouth 15tabs Mo Ibrahim, 06/17/2017 0.5mg Tablets twice a day as M.D. needed for anxiety (unsure of exact dose) Xanax one by mouth up 20tabs Mo Ibrahim, 06/17/2017 0.25mg Tablets to three times M.D. daily as needed for anxiety (pt uses when flying) Naproxen 1 twice a day 60tabs G43.109 Mo Ibrahim, 06/17/2017 500mg Tablets as needed for M.D. headache Zoloft 1 tablet po Unknown 50mg Tablet daily Acetaminophen ER as needed Unknown 1000mg Cyclobenzaprine HCL 1 by mouth as Allyn Juarez, 5mg needed in the [employer] Tablets evening Tramadol HCL Take 1-2 Tablet Unknown 50mg Tablets By Mouth Every 6 Hours as Needed For Pain Maximum Daily History Medications Naratriptan HCL 1 by mouth as 9tabs G43.109 Mo Finch 10/28/2017 - 2.5mg needed migraine Cele Ibrahim 03/30/2019 Tablets may repeat in 4 hours, max 2/day, max 2 days per week Rizatriptan Benzoate 1 by mouth twice 10tabs G43.109 Mo Finch 08/27/2017 - a day as needed Cele Ibrahim 10/28/2017 10mg Tablets headache max 2 days a week Magnesium Oxide 1 by mouth every 90tabs G43.109 Mo Finch 08/27/2017 - 400mg day Cele Ibrahim 12/24/2017 Tablets Art-Ei-Sydxlv 1 by mouth every 28tabs Mo Finch 06/17/2017 - day Cele Ibrahim 06/17/2017 0.18/0.215/0.25 mg-25 mcg Tablets Sumatriptan take 1 at onset 14tabs Mo Finch 06/17/2017 - Succinate of migraine. may Cele Ibrahim 10/28/2017 50mg repeat within 2 Tablets hours if needed. max 2x/week. max daily dose 100mg Butalbital/Acetamino Take Two 8caps G43.109 Mike Pruitt 06/17/2017 - phen/Caffeine Capsules By 03/30/2019 Mouth Twice A 50-300-40mg Capsules Day as Needed For Headache; Max 2 Days Per Week & Maximum Daily Dose=2 Vitamins Unknown - 06/16/2017 Vital Signs Date Vital Result Comment 03/31/2019 9:32am Height 61 inches 5'1" Weight 165.00 lb Heart Rate 120 /min BP Systolic 126 mmHg BP Diastolic 74 mmHg Body Temperature 97.4 F Pain Level 4 BMI (Body Mass Index) 31.2 kg/m2 12/25/2017 9:08am Height 61 inches 5'1" Weight 160.00 lb Heart Rate 80 /min BP Systolic Sitting 126 mmHg BP Diastolic Sitting 84 mmHg Respiratory Rate 16 /min BMI (Body Mass Index) 30.2 kg/m2 10/28/2017 9:25am Height 61 inches 5'1" Weight 160.00 lb Heart Rate 84 /min BP Systolic 104 mmHg BP Diastolic 84 mmHg Respiratory Rate 14 /min BMI (Body Mass Index) 30.2 kg/m2 08/27/2017 9:48am Height 61 inches 5'1" Weight 160.00 lb Heart Rate 78 /min BP Systolic Sitting 120 mmHg BP Diastolic Sitting 78 mmHg BMI (Body Mass Index) 30.2 kg/m2 06/17/2017 1:04pm Height 61 inches 5'1" Weight 150.00 lb Heart Rate 76 /min BP Systolic Sitting 104 mmHg BP Diastolic Sitting 86 mmHg Respiratory Rate 16 /min BMI (Body Mass Index) 28.3 kg/m2 04/16/2015 2:04pm Height 61 inches 5'1" Weight 172.00 lb Pain Level 0 BMI (Body Mass Index) 32.5 kg/m2 02/14/2015 9:58am Height 61 inches 5'1" Weight 172.00 lb Heart Rate 87 /min BP Systolic 82 mmHg BP Diastolic 64 mmHg Pain Level 4 BMI (Body Mass Index) 32.5 kg/m2 Procedures Date Code Description Status 07/18/2011 20482 Short Arm Cast Application Completed 07/10/2011 95904 CLST TRMT Distal Radial FX Completed Encounters Type Date Location Provider Dx Diagnosis Office Visit 12/25/2017 [facility] Mo Finch G43.109 Migraine with 9:00a Clinic Cele Ibrahim aura, not intractable, w/o status migrainosus Office Visit 10/28/2017 [facility] Mo Finch G43.109 Migraine with 9:00a [facility] Of Misha Ibrahim M.D. aura, not intractable, w/o status migrainosus Office Visit 08/27/2017 [facility] Mo Finch G43.109 Migraine with 9:30a Clinic Cele Ibrahim aura, not intractable, w/o status migrainosus Office Visit 06/17/2017 [facility] Mo Finch G43.109 Migraine with 1:00p [facility] Of Misha Ibrahim M.D. aura, not intractable, w/o status migrainosus G43.109 Migraine with aura, not intractable, w/o status migrainosus Office Visit 04/16/2015 2:30p [facility] Keith, 726.10 [facility] Unspec 840.4 Sprains & Strains Rotator Cuff (Capsule) Office Visit 02/14/2015 9:30a [facility] G[facility] Keith, 840.4 [facility] Stra[facility] Rotator Cuff (Capsule) Plan of Treatment Future Appointment(s):04/21/2019 11:30 am - Eduardo Villaseñor M.D. at [facility]/31/2019 - Eduardo Villaseñor M.D.[id number] Sprain of unspecified ligament of right ankle, initial encouFollow up:2-3 weeks
[2019-03-31 21:24] LABS: Urine Appearance Clear; Urine Bacteria Absent (Absent); Urine Bilirubin Negative (Negative); Urine Blood 3+ (Negative); Urine Color Yellow; Urine Glucose Negative (Negative); Urine Ketones Negative (Negative); Urine Nitrite Negative (Negative); Urine Protein Negative (Negative); Urine Red Blood Cell Trace(0-2/hpf) (Absent); Urine Squamous Epithelial Cell Present (Absent); Urine Urobilinogen Negative (Negative); Urine White Blood Cell Absent (Absent)
--- NOTE | 2019-03-31 22:26 | ED ---
Progress - Progress Note Progress Note: This pt is a sign-out from Dr. Cao to Dr. Lira at 22:00 on 03/31/19, pending disposition, awaiting US. Gallbladder US, as read by radiologist IMPRESSION: The there are echogenic calculi in the gallbladder lumen consistent with cholelithiasis but no abnormal gallbladder wall thickening and negative sonographic Gallo sign therefore not specific for acute cholecystitis. Dr. Lira has reviewed this report. Re-Evaluation - Re-Evaluation First Eval Re-Evaluation Time: 22:55 Change: Improved Comment: Reviewed US results with the pt. She will be discharged home with follow up from surgery. Course/Dx - Course Course Of Treatment: This pt was signed out by Dr. Cao, pending gallbladder ultrasound. Gallbladder US shows echogenic calculi in the gallbladder lumen consistent with cholelithiasis but no abnormal gallbladder wall thickening and negative sonographic Gallo sign therefore not specific for acute cholecystitis. Reviewed results with the pt. She will be discharged home with follow up from surgery. Pt was given prescriptions for Reglan and Percocet. Return to ED precautions were given. - Diagnoses Provider Diagnoses: Biliary colic, Cholelithiasis Discharge - Sign-Out/Discharge Documenting (check all that apply): Patient Departure - Discharge home, Receiving Sign-Out Receiving patient FROM: Donta Cao Patient Received Moderate/Deep Sedation with Procedure: No - Discharge Plan Condition: Stable Disposition: HOME Prescriptions: Metoclopramide TAB* [Reglan TAB*] 10 mg PO Q6H PRN #14 tab PRN Reason: Nausea/Vomiting oxyCODONE/Acetamin 5/325 MG* [Percocet 5/325 TAB*] 1 tab PO Q6H PRN #14 tab MDD 4 PRN Reason: Pain Patient Education Materials: Biliary Colic (ED), Gallstones (ED) Referrals: Allyn Juarez NP [Nurse Practitioner] - Royal Castanon MD [Medical Doctor] - Additional Instructions: Call Dr. Castanon's office, surgeon, to make an appointment and follow up. RETURN TO THE ED IMMEDIATELY FOR WORSENING OR CONCERNING SYMPTOMS. - Attestation Statements Document Initiated by Scribe: Yes Documenting Scribe: Shayna Cisneros Provider For Whom Scribe is Documenting (Include Credential): Ramiro Lira MD Scribe Attestation: I, Shayna Cisneros, scribed for Ramiro Lira MD on 03/31/19 at 2303. Status of Scribe Document: Ready
[2019-03-31 23:31] VITALS: BP 111/78
== END 2019-03-31 23:23 | disposition home or self-care (01) ==
LOC: ED 20:03
DX: K80.50 Calculus of bile duct without cholangitis or cholecystitis without obstruction (principal); K80.20 Calculus of gallbladder without cholecystitis without obstruction
CPT/HCPCS: 36415; 76705; 80053; 81003; 81015; 83690; 84702; 85025; 93005; 96361; 96374; 96375; 99284; J1885; J2270

== ENCOUNTER 2019-04-05 07:02 | Day surgery (SDC) | payer OTHER ==
[~2019-04-05 07:02] MED LIST changes: +Buffered Lidocaine 1% SYRIN* 1 ML/SYRINGE INTRADERM ONE; -Iohexol 300* (CONTRAST) 10 ML SDV IV ONE; -Ketorolac INJ* 30 MG/ML 1 ML VIAL IV ONE; +Lactated Ringers 1000 ML Bag* 1,000 ML IV SCH; -Morphine INJ* 4 MG/ML 1 ML SYRINGE IV ONE; -NS 0.9% 1000 ML* 1,000 ML IV ONE; -Ondansetron INJ* 2 MG/ML VIAL IV ONE; +Sodium Citrate/Citric Acid* 15 ML UDC PO ONE
[2019-04-05] MEDS ORDERED: ceFOXitin 2 GM IVPREMIX* 2 GM/50 ML BAG ONE (07:10)
[2019-04-05] MEDS ORDERED: Sodium Citrate/Citric Acid* 15 ML UDC ONE (07:10)
[2019-04-05] MEDS ORDERED: Buffered Lidocaine 1% SYRIN* 1 ML/SYRINGE INTRADERM ONE (07:10)
[2019-04-05] MEDS ORDERED: Bupivacaine 0.25% W/EPI* 10 ML SDV ONE (08:50)
[2019-04-05] MEDS ORDERED: Propofol* 10 MG/ML 20 ML BTL ONE (08:58)
[2019-04-05] MEDS ORDERED: fentaNYL* 50 MCG/ML 2 ML VIAL (100 MCG VIAL) ONE ×2 (08:58→10:52)
[2019-04-05] MEDS ORDERED: Midazolam* 1 MG/ML 2 ML VIAL (2 MG) ONE (08:58)
[2019-04-05] MEDS ORDERED: Rocuronium* 10 MG/ML VIAL ONE (08:59)
[2019-04-05] MEDS ORDERED: Lidocaine 2% PF * 5 ML VIAL ONE (08:59)
[2019-04-05] MEDS ORDERED: Naloxone* 0.4 MG/ML 1 ML VIAL IV PRN (09:06)
[2019-04-05] MEDS ORDERED: DiMENhydriNATE IV* 50 MG/ML VIAL IV PUSH PRN (09:06)
[2019-04-05] MEDS ORDERED: Dexamethasone IV* 4 MG/ML 1 ML (4 MG) ONE (09:46)
[2019-04-05] MEDS ORDERED: Ketorolac INJ* 30 MG/ML 1 ML VIAL ONE (09:58)
[2019-04-05] MEDS ORDERED: Sugammadex * 200 MG/2 ML VIAL IV PUSH ONE (09:59)
--- NOTE | 2019-04-05 10:19 | OP ---
Operative Report - Blank - Operative Report Date of Operation: 04/05/19 Note: Brief Operative Note Preop Dx: symptomatic cholelithiasis Postop Dx: same Procedure: Laparoscopic cholecystectomy Anesthesia: GET Surgeon: Mireille Director Of Volunteer Services: FOUZIA Mariano Fluids: 1200 ml RL EBL: none Specimen: gallbladder Drains: none Findings: dictated
[2019-04-05] MEDS ORDERED: DiMENhydriNATE IV* 50 MG/ML VIAL ONE (10:38)
[2019-04-05] MEDS: fentaNYL* 50 MCG/ML 2 ML VIAL (100 MCG VIAL) IV PRN ×2 (10:53→11:17)
[2019-04-05 11:34] VITALS: BP 130/77
--- NOTE | 2019-04-05 21:51 | OP ---
CC: Lane Velarde MD * DATE OF OPERATION: 04/05/19 - SDS DATE OF : 85 SURGEON: Lane Kendrick MD WARM IN WORKER: FOUZIA Pang ANESTHESIOLOGIST: Jim Abbott DO ANESTHESIA: General endotracheal. PRE-OP DIAGNOSIS: Symptomatic cholelithiasis. POST-OP DIAGNOSIS: Symptomatic cholelithiasis. OPERATIVE PROCEDURE: Laparoscopic cholecystectomy. ESTIMATED BLOOD LOSS: Minimal. IV FLUIDS: Crystalloids. SPECIMEN: Gallbladder. DRAINS: None. COMPLICATIONS: None. COUNTS: Instrument, needle and sponge counts were correct. DESCRIPTION OF PROCEDURE: The patient was brought to the operative room and placed on the table supine. Sequential compression devices were placed on both lower extremities and general anesthesia was administered. She was administered appropriate intravenous antibiotics, and then her abdomen was prepped and draped in the usual sterile fashion and a time-out was performed. Local anesthetic was infiltrated into the skin and soft tissue prior to making each incision. Entry into the abdomen was through a transumbilical vertical incision accommodating a 12-mm trocar. After accessing the peritoneal cavity, carbon dioxide was insufflated to a pressure of 15 mmHg. Under direct visualization, 5 mm trocars were placed, 1 in the subxiphoid position and 2 in the right upper quadrant. The gallbladder was identified beneath the liver. It did not appear to be acutely inflamed. There were some adhesions to the infundibulum that were taken down bluntly. The fundus was retracted cephalad, the infundibulum retracted laterally and medially as the dissection of the peritoneum away from the gallbladder was performed in order to identify and isolate the cystic duct and then the cystic artery. Each structure was doubly clipped and divided and the gallbladder was freed from attachments to the liver staying in the avascular plane and using the cautery. Once the gallbladder was freed, it was placed in an endoscopic retrieval bag and retrieved through the umbilical site. Inspection subsequently revealed hemostasis to be excellent. Clips were intact. Ports were then removed and carbon dioxide was released. Umbilicus was closed with 0 Vicryl in interrupted fashion to approximate the fascia. Skin incisions were closed with 4-0 Monocryl in subcuticular fashion. Steri-Strips were applied. The patient tolerated this procedure well and was extubated and transferred to Recovery in stable condition. [id number]/[facility] #: [id number] [facility]
== END 2019-04-05 12:00 | disposition home or self-care (01) ==
LOC: OR 07:02
PROVIDERS: ATTEND Surgery
DX: K80.10 Calculus of gallbladder with chronic cholecystitis without obstruction (principal); Z68.32 Body mass index [BMI] 32.0-32.9, adult; F41.8 Other specified anxiety disorders; Z87.442 Personal history of urinary calculi
CPT/HCPCS: 81025; 88304; A9270-GY; J0694; J1100; J1240; J1885; J2250; J2704; J3010